=== PATIENT | female | born 1990 | race Caucasian/White ===

== ENCOUNTER 2017-10-15 17:52 | Emergency (ER) | payer OTHER | END 2017-10-15 19:41 | disposition home or self-care (01) | LOC: E/R 19:41 | DX: A08.4 Viral intestinal infection, unspecified (principal) | CPT/HCPCS: 99284; Z7502 ==

== ENCOUNTER 2019-01-11 17:31 | Emergency (ER) | payer MEDICAID, OTHER ==
[2019-01-11] MEDS: ONDANSETRON (ODT) 4 MG TAB ODT (18:59)
[2019-01-11] MEDS: HYDROCODONE/APAP (5/325) TAB PO (19:06)
[2019-01-11] MEDS: KETOROLAC 60 MG INJ IM (19:07)
== END 2019-01-11 20:02 | disposition home or self-care (01) ==
LOC: FTE 17:31
DX: S33.5XXA Sprain of ligaments of lumbar spine, initial encounter (principal); S13.9XXA Sprain of joints and ligaments of unspecified parts of neck, initial encounter; V49.40XA Driver injured in collision with unspecified motor vehicles in traffic accident, initial encounter
CPT/HCPCS: 72040; 72100; 81025; 96372; 99284-25

== ENCOUNTER 2019-05-02 23:32 | Emergency (ER) | payer MEDICAID ==
[2019-05-03] MEDS: KETOROLAC 30 MG INJ IM (02:10)
[2019-05-03 02:30] LABS: URINE BLOOD (Dip) POC 2+ (NEGATIVE); URINE GLUCOSE (Dip) POC Negative (NEGATIVE); URINE KETONES (Dip) POC Negative (NEGATIVE); URINE LEUKOCYTE EST (Dip) POC Negative (NEGATIVE); URINE NITRITE (Dip) POC Negative (NEGATIVE); URINE TOTAL PROTEIN POC 1+ (NEGATIVE)
== END 2019-05-03 03:36 | disposition home or self-care (01) ==
LOC: FTE 23:32
DX: S69.92XA Unspecified injury of left wrist, hand and finger(s), initial encounter (principal); X50.0XXA Overexertion from strenuous movement or load, initial encounter; Y92.89 Other specified places as the place of occurrence of the external cause
CPT/HCPCS: 29125; 73110-LT; 81003; 81025; 96372; 99284-25